=== PATIENT | female | born 1990 | race Caucasian/White ===

== ENCOUNTER 2019-12-31 07:21 | Emergency (ER) | payer MEDICAID ==
[~2019-12-31] VITALS: Ht 170.2 cm; Wt 81.8 kg
[2019-12-31 07:30] VITALS: Ht 170.2 cm; Wt 81.8 kg
[2019-12-31] MEDS ORDERED: BIRTH CONTROL PILLS (07:31)
[2019-12-31 08:06] LABS: BILIRUBIN NEGATIVE (NEGATIVE); GLUCOSE NEGATIVE (NEGATIVE); KETONE NEGATIVE (NEGATIVE); NITRITE NEGATIVE (NEGATIVE); RED CELLS - URINE RARE /hpf (0-5); UROBILINOGEN NORMAL (NORMAL); WHITE CELLS - URINE OCC /hpf (NEGATIVE)
[2019-12-31 08:07] LABS: BACTERIA FEW /hpf (NEGATIVE); EPITHELIAL CELLS OCC /hpf (0-5); HCG URINE NEGATIVE (NEGATIVE)
[2019-12-31 08:21] LABS: BASOPHILS 0.2 % (0-2); EOSINOPHILS 1.6 % (0-7); HEMATOCRIT 38.6 % (36.0-48.0); IMMATURE GRANULOCYTES 0.1 % (0-5); LYMPHOCYTES 28.2 % (15-50); MCH 28.1 pg (26.0-34.0); MCHC 33.7 g/dL (31.0-37.0); MCV 83.5 fL (80.0-100.0); MEAN PLATELET VOLUME 10.5 fL (7.4-10.4); MONOCYTES 8.2 % (2-11); NEUTROPHILS 61.7 % (40-80); PLATELET COUNT 249 10x3/uL (130-400); RBC 4.62 10x6/uL (4.00-5.40); RDW 12.6 % (11.5-14.5); WBC 8.4 10x3/uL (4.8-10.8)
[2019-12-31 09:14] LABS: CALC OSMOLALITY 272 mosm/kg (275-300); CALCIUM 8.8 mg/dL (8.5-10.1); CARBON DIOXIDE 22.5 mmol/L (21.0-32.0); CHLORIDE - SERUM 104 mmol/L (98-107); CREATININE - SERUM 0.8 mg/dL (0.6-1.3); GLUCOSE 99 mg/dL (74-106); POTASSIUM - SERUM 3.7 mmol/L (3.5-5.1); SODIUM 137 mmol/L (136-145); UREA NITROGEN 10 mg/dL (7-18); eGFR NON AFRICAN AMERICAN > 90 mL/min (90-120)
[2019-12-31 09:19] LABS: ALBUMIN 3.3 g/dL (3.4-5.0); ALKALINE PHOSPHATASE 57 U/L (30-120); ALT (SGPT) 23 U/L (10-68); BILIRUBIN - TOTAL 0.23 mg/dL (0.2-1.3); PROTEIN - SERUM 7.2 g/dL (6.4-8.2)
[2019-12-31 10:37] VITALS: BP 104/61
[2019-12-31] MEDS ORDERED: TYLENOL #4 W/CO1 TAB PO (10:45)
[2019-12-31] MEDS ORDERED: LEVSIN/ANASP0.125 MG PO (10:46)
== END 2019-12-31 10:59 | disposition home or self-care (01) ==
LOC: D.ER 07:21
PROVIDERS: Family Medicine
DX: R10.9 Unspecified abdominal pain (principal); R10.2 Pelvic and perineal pain